=== PATIENT | male | born 1995 | race Caucasian/White ===

== ENCOUNTER 2021-04-23 08:08 | Emergency (ER) | payer BC, OTHER ==
[2021-04-23] MEDS ORDERED: IBUPROFEN 600 MG TAB PO STA (08:21)
[2021-04-23] MEDS ORDERED: ACETAMINOPHEN TAB 325 MG TAB PO STA (08:21)
--- NOTE | 2021-04-23 09:17 | XR ---
EXAMINATION TYPE: XR chest 2V DATE OF EXAM: 04/23/2021 COMPARISON: NONE HISTORY: Cough and congestion and fever. TECHNIQUE: Frontal and lateral views of the chest are obtained. FINDINGS: Mild multifocal reticular and reticulonodular opacities bilaterally . There is no pleural e ffusion or pneumothorax seen. The cardiac silhouette size is within normal limits. The osseous str uctures are intact. IMPRESSION: Bilateral multifocal faint reticular and reticulonodular opacities could reflect develop ing atypical infection. Correlate clinically.
[2021-04-23 09:47] LABS: Basophils % (A) 1 %; Eosinophils % (A) 0 %; HGB 16.6 gm/dL (13.0-17.5); Lymphocytes # (A) 0.7 k/uL (1.0-4.8); Lymphocytes % (A) 15 %; MCH 28.8 pg (25.0-35.0); MCHC 34.5 g/dL (31.0-37.0); MCV 83.5 fL (80.0-100.0); Mean Platelet Volume 8.3; Monocytes # (A) 0.3 k/uL (0-1.0); Monocytes % (A) 7 %; Neutrophils # (A) 3.8 k/uL (1.3-7.7); Neutrophils % (A) 76 %; Platelet Count 159 k/uL (150-450); RBC 5.76 m/uL (4.30-5.90); RDW 14.3 % (11.5-15.5); WBC 4.9 k/uL (3.8-10.6)
[2021-04-23 10:00] LABS: African American GFR (CKD) >90 (>60 ml/min/1.73 sqM); Anion Gap 16 mmol/L; Blood Urea Nitrogen 13 mg/dL (9-20); Calcium 9.2 mg/dL (8.4-10.2); Carbon Dioxide 22 mmol/L (22-30); Chloride 101 mmol/L (98-107); Glucose 111 mg/dL (74-99); Non-African American GFR(CKD) >90 (>60 ml/min/1.73 sqM); Potassium 4.1 mmol/L (3.5-5.1); Sodium 139 mmol/L (137-145)
[2021-04-23] MEDS ORDERED: ONDANSETRON 4 MG ODT STARTER PACK 2 TAB BTL PO STA (10:23)
--- NOTE | 2021-04-23 10:24 | ED ---
URI HPI - General Source: patient, RN notes reviewed Mode of arrival: ambulatory Limitations: no limitations <Deng Moreno - Last Filed: 04/23/21 10:48> <Coco Ramirez - Last Filed: 04/26/21 15:16> - General Chief Complaint: Upper Respiratory Infection Stated Complaint: Fever/NVD Time Seen by Provider: 04/23/21 08:21 - History of Present Illness Initial Comments: Patient is a 25-year-old male that presents to the emergency department complaining of upper respiratory tract symptoms with fever, cough, nausea. He notes it is been going on for approximately 4-5 days. He notes that he was recently swab for Covid but has not gotten his results back. He notes he came back to the emergency room because he has been feeling worse. He was otherwise a well-hydrated 25-year-old male in no apparent distress or pain. He denied any chest pain headache vomiting diarrhea constipation fever fatigue chills. (Deng Moreno) - Related Data Allergies Allergy/AdvReac Type Severity Reaction Status Date / Time sulfamethoxazole Allergy Rash/Hives Verified 04/23/21 08:15 [From Bactrim] trimethoprim [From Bactrim] Allergy Rash/Hives Verified 04/23/21 08:15 prochlorperazine AdvReac Confusion Verified 04/23/21 08:15 [From Compazine] Review of Systems ROS Other: All systems not noted in ROS Statement are negative. <Deng Moreno - Last Filed: 04/23/21 10:48> ROS Other: All systems not noted in ROS Statement are negative. <Coco Ramirez - Last Filed: 04/26/21 15:16> ROS Statement: Those systems with pertinent positive or pertinent negative responses have been documented in the HPI. Past Medical History History of Any Multi-Drug Resistant Organisms: None Reported Additional Past Surgical History / Comment(s): malignant tumor resection right thigh, left arm fracture Past Psychological History: No Psychological Hx Reported Smoking Status: Never smoker Past Alcohol Use History: Occasional Past Drug Use History: None Reported <Deng Moreno - Last Filed: 04/23/21 10:48> General Exam Limitations: no limitations General appearance: alert, in no apparent distress, obese Head exam: Present: atraumatic, normocephalic, normal inspection Eye exam: Present: normal appearance, PERRL, EOMI. Absent: scleral icterus, conjunctival injection, periorbital swelling Neck exam: Present: normal inspection Respiratory exam: Present: normal lung sounds bilaterally. Absent: respiratory distress, wheezes, rales, rhonchi, stridor Cardiovascular Exam: Present: regular rate, normal rhythm, normal heart sounds. Absent: systolic murmur, diastolic murmur, rubs, gallop, clicks GI/Abdominal exam: Present: soft, normal bowel sounds. Absent: distended, tenderness, guarding, rebound, rigid Extremities exam: Present: normal inspection, full ROM, normal capillary refill. Absent: tenderness, pedal edema, joint swelling, calf tenderness Neurological exam: Present: alert, oriented X3 Psychiatric exam: Present: normal affect, normal mood Skin exam: Present: warm, dry, intact, normal color. Absent: rash <Deng Moreno - Last Filed: 04/23/21 10:48> Course Vital Signs 04/23/21 04/23/21 04/23/21 08:10 10:25 11:32 Temperature 101.5 F H 100 F H 99 F Pulse Rate 124 H 101 H 105 H Respiratory 18 18 20 Rate Blood Pressure 135/98 121/83 114/80 O2 Sat by Pulse 96 96 97 Oximetry Medical Decision Making - Lab Data Result diagrams: 04/23/21 09:23 04/23/21 09:23 - Radiology Data Radiology results: report reviewed, image reviewed <Deng Moreno - Last Filed: 04/23/21 10:48> - Lab Data Result diagrams: 04/23/21 09:23 04/23/21 09:23 <Coco Ramirez - Last Filed: 04/26/21 15:16> - Medical Decision Making 25-year-old male with upper respiratory tract symptoms involving fever, cough, general fatigue, nausea. Covid swab, basic labs, chest x-ray ordered. Covid test positive. Labs unremarkable. Chest x-ray shows:Bilateral multifocal faint reticular and reticulonodular opacities could reflect developing atypical infection Patient was informed that he meets criteria for monoclonal antibody IV infusion therapy and wishes to undergo the IV infusion. Case discussed with Dr. Ramirez, patient can discharge home after IV infusion. (Deng Moreno) I was available for consultation in the emergency department. The history and physical exam were done by the midlevel provider. I was consulted for this patients care. I reviewed the case with the midlevel provider and based on their presentation of the patient, I agree with the assessment, medical decision making and plan of care as documented. Chart was dictated using eMar dictation software. Attempts were made to correct any dictation errors however some typographical errors may persist. Patient was seen during a national state of emergency due to the Covid-19 pandemic. (Coco Ramirez) - Lab Data Lab Results 04/23/21 04/23/21 04/23/21 Range/Units 08:47 09:23 09:23 WBC 4.9 (3.8-10.6) k/uL RBC 5.76 (4.30-5.90) m/uL Hgb 16.6 (13.0-17.5) gm/dL Hct 48.0 (39.0-53.0) % MCV 83.5 (80.0-100.0) fL MCH 28.8 (25.0-35.0) pg MCHC 34.5 (31.0-37.0) g/dL RDW 14.3 (11.5-15.5) % Plt Count 159 (150-450) k/uL MPV 8.3 Neutrophils % 76 % Lymphocytes % 15 % Monocytes % 7 % Eosinophils % 0 % Basophils % 1 % Neutrophils # 3.8 (1.3-7.7) k/uL Lymphocytes # 0.7 L (1.0-4.8) k/uL Monocytes # 0.3 (0-1.0) k/uL Eosinophils # 0.0 (0-0.7) k/uL Basophils # 0.0 (0-0.2) k/uL Manual Slide Review Performed RBC Morphology Normal Sodium 139 (137-145) mmol/L Potassium 4.1 (3.5-5.1) mmol/L Chloride 101 (98-107) mmol/L Carbon Dioxide 22 (22-30) mmol/L Anion Gap 16 mmol/L BUN 13 (9-20) mg/dL Creatinine 0.99 (0.66-1.25) mg/dL Est GFR (CKD-EPI)AfAm >90 (>60 ml/min/1.73 sqM) Est GFR (CKD-EPI)NonAf >90 (>60 ml/min/1.73 sqM) Glucose 111 H (74-99) mg/dL Calcium 9.2 (8.4-10.2) mg/dL Coronavirus (PCR) Detected A (Not Detectd) - Radiology Data Chest x-ray shows:Bilateral multifocal faint reticular and reticulonodular opacities could reflect developing atypical infection (Deng Moreno) Disposition Is patient prescribed a controlled substance at d/c from ED?: No Time of Disposition: 10:48 <Deng Moreno - Last Filed: 04/23/21 10:48> <Coco Ramirez - Last Filed: 04/26/21 15:16> Clinical Impression: COVID Disposition: HOME SELF-CARE Condition: Stable Instructions (If sedation given, give patient instructions): Coronavirus Disease 2019 (COVID-19) Additional Instructions: Please return to the Emergency Department if symptoms worsen or any other concerns. Follow-up primary care the next 1-2 days. Quarantine per CDC guidelines. Take Tylenol and Motrin alternating every 3 hours for fever control. Referrals: Nonstaff,Physician [Primary Care Provider] - 1-2 days
[2021-04-23] MEDS ORDERED: CASIRIVIMAB (REGN10933) (EUA) 600 MG, IMDEVIMAB (REGN10987) (EUA) 600 MG in SODIUM CHLO... IVPB ONE (10:30)
[2021-04-23] MEDS ORDERED: SODIUM CHLORIDE 0.9% 50 ML IVPB ONE (10:30)
[2021-04-23 11:34] VITALS: BP 114/80; PULSE 105; RESP 20; TEMP 99
== END 2021-04-23 12:45 | disposition home or self-care (01) ==
LOC: EC 08:08
DX: U07.1 COVID-19 (principal); E66.9 Obesity, unspecified; Z88.1 Allergy status to other antibiotic agents; Z88.2 Allergy status to sulfonamides; Z88.8 Allergy status to other drugs, medicaments and biological substances; Z68.42 Body mass index [BMI] 45.0-49.9, adult
CPT/HCPCS: 36415; 80048; 85025; 87635; 71046; 96374; 99283; S0119; Q0243